=== PATIENT | male | born 1990 | race Caucasian/White ===

== ENCOUNTER 2017-11-06 16:31 | Emergency (ER) | payer SELFPAY ==
--- NOTE | 2017-11-06 16:48 | PDOC ---
Rapid Medical Evaluation Time Seen by Provider: 11/06/17 16:44 Medical Evaluation: 11/06/17 16:44 I have performed a brief in person evaluation of this patient. The patient presents with chief complaint of : chest congestion, coughing for one night , low grade fever last night Pertinent PE findings: nasal congestion I have ordered the following: none The patient will proceed to the ER for further evaluation. 11/06/17 16:52
[2017-11-06 16:56] VITALS: BP 139/71; PULSE 76; TEMP 98.8; BMI 26.2
[2017-11-06] MEDS ORDERED: ALBUTEROL SO4 0.083% IH SOL 2.5 MG/3 ML VIAL.NEB. NEB ONE (17:15)
--- NOTE | 2017-11-06 17:36 | PDOC ---
History of Present Illness - General Chief Complaint: Cold Symptoms Stated Complaint: CHEST PAIN/COUGHING Time Seen by Provider: 11/06/17 16:44 History Source: Patient - History of Present Illness Timing/Duration: reports: other Associated Symptoms: reports: cough, headache, muscle aches, nasal congestion. denies: earache, facial pain, fever/chills, nasal drainage, shortness of breath , sore throat, wheezing Past History - Past Medical History Allergies/Adverse Reactions: Allergies Allergy/AdvReac Type Severity Reaction Status Date / Time aspirin Allergy Verified 11/06/17 16:53 Home Medications: Ambulatory Orders NK [No Known Home Medication] 11/06/17 COPD: No - Suicide/Smoking/Psychosocial Hx Smoking History: Current every day smoker Have you smoked in the past 12 months: No Number of Cigarettes Smoked Daily: 3 Information on smoking cessation initiated: No Hx Alcohol Use: No Drug/Substance Use Hx: No Substance Use Type: None Review of Systems - Review of Systems Constitutional: No: Fever HEENTM: Yes: Nose Congestion Respiratory: Yes: Cough. No: Shortness of Breath, Wheezing *Physical Exam - Vital Signs Last Vital Signs Temp Pulse Resp BP Pulse Ox 98.8 F 76 18 139/71 98 11/06/17 16:53 11/06/17 16:53 11/06/17 16:53 11/06/17 16:53 11/06/17 16:53 - Physical Exam General Appearance: Yes: Appropriately Dressed. No: Apparent Distress HEENT: positive: Normal ENT Inspection, Normal Voice. negative: Scleral Icterus (R), Scleral Icterus (L) Neck: positive: Supple. negative: Lymphadenopathy (R), Lymphadenopathy (L) Respiratory/Chest: positive: Lungs Clear. negative: Normal Breath Sounds, Respiratory Distress Cardiovascular: positive: Regular Rate, S1, S2 Integumentary: positive: Dry, Warm Neurologic: positive: Fully Oriented, Alert, Normal Mood/Affect Medical Decision Making - Medical Decision Making 11/06/17 17:36 27-year-old male, no significant history here with body aches, cough, GARCIA, nasal congestion for 3 days. Denies fever, chills, nausea, vomiting or diarrhea. No known sick contacts or recent travel See exam Viral illness Stable and well terrance w/ unremarkable exam Outside window for tamiflu so no utility in testing for the flu -Dc w/ supportive tx 11/06/17 17:46 *DC/Admit/Observation/Transfer Diagnosis at time of Disposition: Viral illness - Discharge Dispostion Disposition: HOME Condition at time of disposition: Good - Referrals - Patient Instructions Printed Discharge Instructions: DI for Viral Syndrome - Post Discharge Activity Forms/Work/School Notes: Back to Work
[2017-11-06] MEDS ORDERED: ACETAMINOPHEN 325 MG TABLET (FP) PO ONE (17:43)
[2017-11-06] MEDS ORDERED: ALBUTEROL SO4 2.5/IPRATROPIUM 0.5 INH SOL 3 ML VIAL.NEB. NEB ONE (17:44)
[2017-11-06] MEDS ORDERED: ACETAMINOPHEN 325 MG TABLET (FP) ONE (17:51)
== END 2017-11-06 18:00 | disposition home or self-care (01) ==
LOC: JERFT 16:31
PROC: 3E0F7GC Introduction of Other Therapeutic Substance into Respiratory Tract, Via Natural or Artificial Opening (ICD-10-PCS; principal; 2017-11-06)
DX: R51 Headache (principal); B34.9 Viral infection, unspecified
CPT/HCPCS: 99281-25